=== PATIENT | female | born 1985 | race Caucasian/White ===

== ENCOUNTER 2016-03-19 13:32 | Emergency (ER) | payer OTHER ==
--- NOTE | 2016-03-19 13:56 | ER Document Report ---
ED Medical Screen (RME) - General Stated Complaint: PAIN,DRAINAGE AT SUTURE SITE/ARM Time seen by provider: 13:56 Mode of Arrival: Ambulatory Information source: Patient Notes: 30-year-old female had to dorsal right forearm laceration sutured on . It is throbbing with some drainage and she is wondering if she needs antibiotics. No fever. TRAVEL OUTSIDE OF THE [place] IN LAST 30 DAYS: No - Related Data Allergies/Adverse Reactions: ketorolac tromethamine [From Toradol] Adverse Reaction (Verified 01/15/16 22:52) HIVES, ITCHING Past Medical History - Past Medical History Cardiac Medical History: Denies: Hx Coronary Artery Disease, Hx Heart Attack, Hx Hypertension Pulmonary Medical History: Denies: Hx Asthma, Hx Bronchitis, Hx COPD, Hx Pneumonia Neurological Medical History: Reports: Hx Seizures - LAST ONE 12/26/15;"They can 't find out what's causing them". Denies: Hx Cerebrovascular Accident Musculoskeltal Medical History: Denies Hx Arthritis Psychiatric Medical History: Reports: Hx Anxiety - Takes Effexor Past Surgical History: Reports: Hx Appendectomy, Hx Cholecystectomy, Hx Gastric Bypass Surgery - 2002, Hx Hysterectomy, Hx Orthopedic Surgery - L meniscus repair - Immunizations Immunizations up to date: Yes Hx Diphtheria, Pertussis, Tetanus Vaccination: Yes
[2016-03-19] MEDS ORDERED: ONDANSETRON 4 MG TAB.RAPDIS PO ONE (14:00)
[2016-03-19] MEDS ORDERED: DIPH/PERTUSS(ACELL)/TETANUS VAC/PF 0.5 ML SYR (>=10YO) IM ONE (14:39)
--- NOTE | 2016-03-19 14:39 | ER Document Report ---
ED Medical Screen (RME) - General Chief Complaint: Wound Infection Stated Complaint: PAIN,DRAINAGE AT SUTURE SITE/ARM Mode of Arrival: Ambulatory Notes: Patient is a 30-year-old female presents emergency Department for wound check. Patient states that she was cutting vegetables on when she cut the back of her wrist. She had her wound closed at [facility] on . Currently she is here complaining of pain at the site with mild drainage. She's concerned for infection. Admits to tenderness and warmth at the site without cloudy drainage. Denies any fevers, chills. tetanus not utd TRAVEL OUTSIDE OF THE [place] IN LAST 30 DAYS: No - Related Data Allergies/Adverse Reactions: ketorolac tromethamine [From Toradol] Adverse Reaction (Verified 01/15/16 22:52) HIVES, ITCHING Past Medical History - General Information source: Patient - Past Medical History Cardiac Medical History: Denies: Hx Coronary Artery Disease, Hx Heart Attack, Hx Hypertension Pulmonary Medical History: Denies: Hx Asthma, Hx Bronchitis, Hx COPD, Hx Pneumonia Neurological Medical History: Reports: Hx Seizures - LAST ONE 12/26/15;"They can 't find out what's causing them". Denies: Hx Cerebrovascular Accident Renal/ Medical History: Denies: Hx Peritoneal Dialysis Musculoskeltal Medical History: Denies Hx Arthritis Psychiatric Medical History: Reports: Hx Anxiety - Takes Effexor Past Surgical History: Reports: Hx Appendectomy, Hx Cholecystectomy, Hx Gastric Bypass Surgery - 2002, Hx Hysterectomy, Hx Orthopedic Surgery - L meniscus repair - Immunizations Immunizations up to date: Yes Hx Diphtheria, Pertussis, Tetanus Vaccination: Yes Review of Systems - Review of Systems Constitutional: No symptoms reported EENT: No symptoms reported Cardiovascular: No symptoms reported Respiratory: No symptoms reported Gastrointestinal: No symptoms reported Genitourinary: No symptoms reported Female Genitourinary: No symptoms reported Musculoskeletal: No symptoms reported Skin: See HPI Hematologic/Lymphatic: No symptoms reported Neurological/Psychological: No symptoms reported Physical Exam - Vital signs Vitals: Temp Pulse Resp BP Pulse Ox 97.8 F 105 H 16 136/86 H 100 03/19/16 13:59 03/19/16 13:59 03/19/16 13:59 03/19/16 13:59 03/19/16 13:59 - General General appearance: Appears well In distress: None - Skin Skin Temperature: Warm Skin Moisture: Dry Skin Color: Normal, Erythema Skin Turgor: Elastic Skin irregularity: Laceration - 2 lacerations. closed with prolene Location of irregularity: Extremities Character of irregularity: Linear Irregularity with: Tenderness, Warmth. negative: Weeping Course - Re-evaluation Re-evalutation: 03/19/16 14:36 Mild erythema with moderate tenderness larger 2 lacerations. No evidence of wound dehiscence or cloudy drainage. Discharge patient home on by mouth antibiotics and she wasn't sent home with anything and laceration care can follow-up with her primary care provider as scheduled for suture removal. - Vital Signs Vital signs: Temp Pulse Resp BP Pulse Ox 97.8 F 105 H 16 136/86 H 100 03/19/16 13:59 03/19/16 13:59 03/19/16 13:59 03/19/16 13:59 03/19/16 13:59 Doctor's Discharge - Discharge Clinical Impression: Encounter for evaluation of wound Condition: Good Disposition: HOME, SELF-CARE Instructions: Laceration Care ([facility]), Prophylactic Antibiotic ([facility]), Soap Cleansing ([facility]) Prescriptions: Tramadol HCl 50 mg PO Q8HP PRN #6 tablet PRN Reason: Cephalexin Monohydrate [Keflex 500 mg Capsule] 500 mg PO BID #7 capsule Forms: Elevated Blood Pressure
[2016-03-19] MEDS ORDERED: TRAMADOL HCL 50 MG TABLET PO ONE (14:40)
[2016-03-19 15:10] VITALS: BP 129/96
== END 2016-03-19 15:10 | disposition home or self-care (01) ==
LOC: ER 13:32
DX: T81.4XXA Infection following a procedure, initial encounter (principal); Z98.890 Other specified postprocedural states
CPT/HCPCS: 99282; 90471; 90715; S0119

== ENCOUNTER 2016-04-06 11:22 | Emergency (ER) | payer OTHER ==
--- NOTE | 2016-04-06 11:53 | ER Document Report ---
ED Medical Screen (RME) - General Stated Complaint: FOOT PAIN Notes: 30 yo female c/o pain to left toes x 3 days. hurts to walk. pt reports hitting toes on wooden stool TRAVEL OUTSIDE OF THE [place] IN LAST 30 DAYS: No - Related Data Allergies/Adverse Reactions: ketorolac tromethamine [From Toradol] Adverse Reaction (Verified 01/15/16 22:52) HIVES, ITCHING Past Medical History - Past Medical History Cardiac Medical History: Denies: Hx Coronary Artery Disease, Hx Heart Attack, Hx Hypertension Pulmonary Medical History: Denies: Hx Asthma, Hx Bronchitis, Hx COPD, Hx Pneumonia Neurological Medical History: Reports: Hx Seizures - LAST ONE 12/26/15;"They can 't find out what's causing them". Denies: Hx Cerebrovascular Accident Renal/ Medical History: Denies: Hx Peritoneal Dialysis Musculoskeltal Medical History: Denies Hx Arthritis Psychiatric Medical History: Reports: Hx Anxiety - Takes Effexor Past Surgical History: Reports: Hx Appendectomy, Hx Cholecystectomy, Hx Gastric Bypass Surgery - 2002, Hx Hysterectomy, Hx Orthopedic Surgery - L meniscus repair - Immunizations Immunizations up to date: Yes Hx Diphtheria, Pertussis, Tetanus Vaccination: No Physical Exam - Vital signs Vitals: Temp Pulse Resp BP Pulse Ox 98.1 F 108 H 20 127/75 H 97 04/06/16 11:42 04/06/16 11:42 04/06/16 11:42 04/06/16 11:42 04/06/16 11:42 Course - Vital Signs Vital signs: Temp Pulse Resp BP Pulse Ox 98.1 F 108 H 20 127/75 H 97 04/06/16 11:42 04/06/16 11:42 04/06/16 11:42 04/06/16 11:42 04/06/16 11:42
[2016-04-06] MEDS ORDERED: OXYCODONE-ACETAMINOPHEN 5-325 MG TABLET PO ONE (13:29)
--- NOTE | 2016-04-06 13:40 | ER Document Report ---
HPI - HPI Patient complains to provider of: toe pain Pain Level: 5 Context: He shouldn't is a 30-year-old female presents emergency Department complaining of left pinky toe pain. Patient states that her told her to stop stool may not avoid which he accidentally hit twice with her pinky toe today and she admits to pain. Patient has taken Motrin without any improvement in her symptoms. Able to bear weight. Sensation in the tip of her toe. PCP is [facility] - CARDIOVASCULAR Cardiovascular: DENIES: Chest pain - REPRODUCTIVE Reproductive: DENIES: : - DERM Skin Color: Normal Past Medical History - Social History Smoking Status: Never Smoker Chew tobacco use (# tins/day): No Frequency of alcohol use: None Drug Abuse: None Family History: Reviewed & Not Pertinent Patient has suicidal ideation: No Patient has homicidal ideation: No - Past Medical History Cardiac Medical History: Denies: Hx Coronary Artery Disease, Hx Heart Attack, Hx Hypertension Pulmonary Medical History: Denies: Hx Asthma, Hx Bronchitis, Hx COPD, Hx Pneumonia Neurological Medical History: Reports: Hx Seizures - LAST ONE 12/26/15;"They can 't find out what's causing them". Denies: Hx Cerebrovascular Accident Renal/ Medical History: Denies: Hx Peritoneal Dialysis Musculoskeltal Medical History: Denies Hx Arthritis Psychiatric Medical History: Reports: Hx Anxiety - Takes Effexor, Hx Depression - & anxiety Past Surgical History: Reports: Hx Appendectomy, Hx Cholecystectomy, Hx Gastric Bypass Surgery - 2002, Hx Hysterectomy, Hx Orthopedic Surgery - L meniscus repair - Immunizations Immunizations up to date: Yes Hx Diphtheria, Pertussis, Tetanus Vaccination: No Vertical Provider Document - CONSTITUTIONAL Agree With Documented VS: Yes Exam Limitations: No Limitations General Appearance: WD/WN, No Apparent Distress, Obese - INFECTION CONTROL TRAVEL OUTSIDE OF THE [place] IN LAST 30 DAYS: No - HEENT HEENT: Atraumatic, Normocephalic - RESPIRATORY O2 Sat by Pulse Oximetry: 97 - CARDIOVASCULAR Pulses: Normal: Dorsalis pedis Notes: Capillary refill less than 2 seconds in all lower extremity digits - MUSCULOSKELETAL/EXTREMETIES Musculoskeletal/Extremeties: MAEW, FROM, Tender, Edema, Eccymosis - NEURO Level of Consciousness: Awake, Alert, Appropriate Motor/Sensory: No Motor Deficit, No Sensory Deficit - DERM Integumentary: Warm, Dry, No Rash Course - Re-evaluation Re-evalutation: 04/06/16 13:36 Patient is a 30-year-old female presents emergency Department complaining of left pinky toe pain after she hit it on some wooden x-ray does reveal a comminuted fracture of the fifth proximal phalanx. Will discharge patient home with instruction to use supportive shoes and crutches as tolerated ice and elevation. Follow-up with her primary care provider as needed - Vital Signs Vital signs: Temp Pulse Resp BP Pulse Ox 98.1 F 108 H 20 127/75 H 97 04/06/16 11:42 04/06/16 11:42 04/06/16 11:42 04/06/16 11:42 04/06/16 11:42 - Diagnostic Test Radiology reviewed: Image reviewed, Reports reviewed Discharge - Discharge Clinical Impression: Toe fracture Qualifiers: Encounter type: initial encounter Toe: lesser toe Fracture type: closed Phalanx : proximal Fracture alignment: nondisplaced Laterality: left Qualified Code(s): S92.515A - Nondisplaced fracture of proximal phalanx of left lesser toe(s), initial encounter for closed fracture Condition: Good Disposition: HOME, SELF-CARE Additional Instructions: Fractured Toe You have fractured your toe. Although this fracture doesn't need a cast or splint, emergency evaluation was needed to assess the straightness of the bones and joints. Reduction ("setting") is necessary for toe fractures which are crooked or twisted. A toe fracture will heal in about three weeks. Usually, the fractured toe is taped to the next toe. The second toe acts as a moving splint to protect the broken one. Ice and elevation help during the first 48 hours. You may need crutches at first if walking is painful. When you begin walking, be careful NOT to do things that hurt. If weight bearing is not comfortable within a few days, you may require a special shoe, walking boot, or cast. Call the doctor or return at once if severe swelling, severe pain, or numbness develop in the toe, or if you suspect you may have re-injured it. Prescriptions: Oxycodone HCl/Acetaminophen [Percocet 5-325 mg Tablet] 1 - 2 tab PO Q6HP PRN # 20 tablet PRN Reason:
[2016-04-06 13:50] VITALS: BP 114/99
== END 2016-04-06 13:48 | disposition home or self-care (01) ==
LOC: ER 11:22
DX: S92.515A Nondisplaced fracture of proximal phalanx of left lesser toe(s), initial encounter for closed fracture (principal); W22.03XA Walked into furniture, initial encounter; Z90.49 Acquired absence of other specified parts of digestive tract; Z98.84 Bariatric surgery status; Z90.710 Acquired absence of both cervix and uterus
CPT/HCPCS: 99283

== ENCOUNTER 2016-04-08 13:32 | Emergency (ER) | payer OTHER ==
--- NOTE | 2016-04-08 13:40 | ER Document Report ---
ED Medical Screen (RME) - General Stated Complaint: FOOT PAIN Time seen by provider: 13:38 Mode of Arrival: Ambulatory Notes: Patient states that she was seen here several days ago, diagnosed with hairline fracture in left toe. Patient states she feels like the pain is getting worse. Toes have started turning blue. I have greeted and performed a rapid initial assessment of this patient. A comprehensive ED assessment and evaluation of the patient, analysis of test results and completion of the medical decision making process will be conducted by additional ED providers. TRAVEL OUTSIDE OF THE [place] IN LAST 30 DAYS: No - Related Data Allergies/Adverse Reactions: ketorolac tromethamine [From Toradol] Adverse Reaction (Verified 01/15/16 22:52) HIVES, ITCHING Past Medical History - Past Medical History Cardiac Medical History: Denies: Hx Coronary Artery Disease, Hx Heart Attack, Hx Hypertension Pulmonary Medical History: Denies: Hx Asthma, Hx Bronchitis, Hx COPD, Hx Pneumonia Neurological Medical History: Reports: Hx Seizures - LAST ONE 12/26/15;"They can 't find out what's causing them". Denies: Hx Cerebrovascular Accident Renal/ Medical History: Denies: Hx Peritoneal Dialysis Musculoskeltal Medical History: Denies Hx Arthritis Psychiatric Medical History: Reports: Hx Anxiety - Takes Effexor, Hx Depression - & anxiety Past Surgical History: Reports: Hx Appendectomy, Hx Cholecystectomy, Hx Gastric Bypass Surgery - 2002, Hx Hysterectomy, Hx Orthopedic Surgery - L meniscus repair - Immunizations Immunizations up to date: Yes Hx Diphtheria, Pertussis, Tetanus Vaccination: No Physical Exam - Vital signs Vitals: Temp Pulse Resp BP Pulse Ox 97.7 F 107 H 20 148/105 H 99 04/08/16 13:36 04/08/16 13:36 04/08/16 13:36 04/08/16 13:36 04/08/16 13:36 - Extremities Notes: Patient has left fourth and fifth toes raul taped, walking with limp. Slight bruising noted. Course - Vital Signs Vital signs: Temp Pulse Resp BP Pulse Ox 97.7 F 107 H 20 148/105 H 99 04/08/16 13:36 04/08/16 13:36 04/08/16 13:36 04/08/16 13:36 04/08/16 13:36
[2016-04-08] MEDS ORDERED: ONDANSETRON 4 MG TAB.RAPDIS PO ONE (14:28)
--- NOTE | 2016-04-08 14:33 | ER Document Report ---
ED Extremity Problem, Lower - General Chief Complaint: Foot Pain Stated Complaint: FOOT PAIN Mode of Arrival: Ambulatory Information source: Patient Notes: 30-year-old female presents to the emergency department complaining of left pain. Patient reports she struck the lateral aspect of her left foot and fifth toe 2 days ago on a piece of furniture at home and was subsequently evaluated) department. States was told she had a fractured left fifth toe. Reports pain is persistent. Denies increased swelling, paresthesias, or color changes aside from initial bruising. TRAVEL OUTSIDE OF THE [place] IN LAST 30 DAYS: No - HPI Patient complains to provider of: Pain Location: 5th Toe Onset/Duration: Persistent Quality of pain: Achy Severity: Moderate Pain Level: 3 Recent injury: Yes Associated symptoms: Painful ambulation Exacerbated by: Movement, Walking Relieved by: Elevation, Ice, Rest - Related Data Allergies/Adverse Reactions: ketorolac tromethamine [From Toradol] Adverse Reaction (Verified 01/15/16 22:52) HIVES, ITCHING Past Medical History - General Information source: Patient - Social History Smoking Status: Never Smoker Chew tobacco use (# tins/day): No Frequency of alcohol use: None Drug Abuse: None Lives with: Family Family History: Reviewed & Not Pertinent Patient has suicidal ideation: No Patient has homicidal ideation: No - Past Medical History Cardiac Medical History: Denies: Hx Coronary Artery Disease, Hx Heart Attack, Hx Hypertension Pulmonary Medical History: Denies: Hx Asthma, Hx Bronchitis, Hx COPD, Hx Pneumonia Neurological Medical History: Reports: Hx Seizures - LAST ONE 12/26/15;"They can 't find out what's causing them". Denies: Hx Cerebrovascular Accident Renal/ Medical History: Denies: Hx Peritoneal Dialysis Musculoskeltal Medical History: Denies Hx Arthritis Psychiatric Medical History: Reports: Hx Anxiety - Takes Effexor, Hx Depression - & anxiety Past Surgical History: Reports: Hx Appendectomy, Hx Cholecystectomy, Hx Gastric Bypass Surgery - 2002, Hx Hysterectomy, Hx Orthopedic Surgery - L meniscus repair - Immunizations Hx Diphtheria, Pertussis, Tetanus Vaccination: Yes Review of Systems - Review of Systems Constitutional: No symptoms reported EENT: No symptoms reported Cardiovascular: No symptoms reported Respiratory: No symptoms reported Gastrointestinal: No symptoms reported Genitourinary: No symptoms reported Female Genitourinary: No symptoms reported Musculoskeletal: See HPI Skin: No symptoms reported Hematologic/Lymphatic: No symptoms reported Neurological/Psychological: No symptoms reported -: Yes All other systems reviewed and negative Physical Exam - Vital signs Vitals: Temp Pulse Resp BP Pulse Ox 97.7 F 107 H 20 148/105 H 99 04/08/16 13:36 04/08/16 13:36 04/08/16 13:36 04/08/16 13:36 04/08/16 13:36 Interpretation: Normal - General General appearance: Appears well, Alert In distress: None - HEENT Head: Normocephalic, Atraumatic Eyes: Normal Pupils: PERRL - Respiratory Respiratory status: No respiratory distress Chest status: Nontender Breath sounds: Normal Chest palpation: Normal - Cardiovascular Rhythm: Regular Heart sounds: Normal auscultation Murmur: No Pulses: Normal: Radial, Posterior tibial, Dorsalis pedis Normal capillary refill: Yes - Abdominal Inspection: Normal Distension: No distension Bowel sounds: Normal Tenderness: Nontender Organomegaly: No organomegaly - Back Back: Normal, Nontender - Extremities General upper extremity: Normal inspection, Nontender, Normal color, Normal ROM , Normal strength, Normal temperature. No: Tender, Edema General lower extremity: Normal inspection, Nontender, Normal color, Normal ROM , Normal strength, Normal temperature, Normal weight bearing. No: Tender, Edema Knee: Normal, Nontender Calf: Normal, Nontender Ankle: Normal, Nontender Foot: Tender - Mild tenderness with palpation, and mild localized bruising and swelling to lateral aspect of distal left foot and fifth toe. Full but painful range of motion. Motor and neurovascular function intact., Ecchymosis, Edema. No: Deformity, Instability - Neurological Neuro grossly intact: Yes Cognition: Normal Orientation: AAOx4 [place] Coma Scale Eye Opening: Spontaneous [place] Coma Scale Verbal: Oriented [place] Coma Scale Motor: Obeys Commands [place] Coma Scale Total: 15 Speech: Normal Motor strength normal: LUE, RUE, LLE, RLE Sensory: Normal - Psychological Associated symptoms: Normal affect, Normal mood - Skin Skin Temperature: Warm Skin Moisture: Dry Skin Color: Normal Course - Re-evaluation Re-evalutation: 04/08/16 14:36 Patient hemodynamically stable, in no distress. Reviewed patient's records from 2 days ago during initial ED visit after injury which showed mildly comminuted proximal phalanx left fifth toe fracture. Patient's physical exam today is unremarkable. Will place postop shoe and patient declined crutches at this time. Patient appears stable for discharge and agrees with home care, follow-up with PCP and orthopedics, and ED return precautions. - Vital Signs Vital signs: Temp Pulse Resp BP Pulse Ox 98.3 F 105 H 16 140/86 H 96 04/08/16 14:45 04/08/16 14:45 04/08/16 14:45 04/08/16 14:45 04/08/16 14:45 - Diagnostic Test Radiology reviewed: Image reviewed, Reports reviewed Procedures - Immobilization Left Foot Time completed: 14:45 Pre-Proc Neuro Vasc Exam: Normal Immobilizer type: Post-op shoe Performed by: RN, PCT Post-Proc Neuro Vasc Exam: Normal Alignment checked and good: Yes Discharge - Discharge Clinical Impression: Toe fracture Qualifiers: Encounter type: subsequent encounter Toe: lesser toe Fracture type: closed Phalanx: proximal Fracture alignment: nondisplaced Laterality: left Fracture healing: with routine healing Qualified Code(s): S92.515D - Nondisplaced fracture of proximal phalanx of left lesser toe(s), subsequent encounter for fracture with routine healing Condition: Stable Disposition: HOME, SELF-CARE Instructions: Fractured Toe ([facility]), Milo Taping (toes) ([facility]), Post-Op Shoe ([facility] ), Ice & Elevation ([facility]), Anti-Inflammatory Medication ([facility]) Additional Instructions: Follow-up with your primary care provider next week. Return to the emergency department for any worsening symptoms or concerns. Prescriptions: Naproxen [Naprosyn 375 Mg Tablet] 375 mg PO BIDP PRN #10 tablet PRN Reason: Forms: Return to Work Referrals: JAELYN ENRIQUEZ MD [ACTIVE STAFF] - Follow up in 3-5 days
[2016-04-08 14:50] VITALS: BP 140/86
== END 2016-04-08 14:48 | disposition home or self-care (01) ==
LOC: ER 13:32
DX: S92.515D Nondisplaced fracture of proximal phalanx of left lesser toe(s), subsequent encounter for fracture with routine healing (principal); M79.672 Pain in left foot; X58.XXXD Exposure to other specified factors, subsequent encounter
CPT/HCPCS: 99283; S0119

== ENCOUNTER 2016-04-20 20:27 | Emergency (ER) | payer OTHER ==
--- NOTE | 2016-04-20 20:44 | ER Document Report ---
ED Medical Screen (RME) - General Chief Complaint: Allergic Reaction Stated Complaint: CHEST PAIN Time seen by provider: 20:41 Mode of Arrival: Ambulatory Information source: Patient Notes: 31-year-old female presents to ED for chest pain anxiety possible allergic reaction to her lunesta. She stated her face felt numb. Patient was crying. Vital signs stable lungs are clear no difficulty with breathing. States she took her first dose today. She states she usually goes to bed around 7 so that is when she took her medicine. I have greeted and performed a rapid initial assessment of this patient. A comprehensive ED assessment and evaluation of the patient, analysis of test results and completion of medical decision making process will be conducted by an additional ED providers. TRAVEL OUTSIDE OF THE [place] IN LAST 30 DAYS: No - Related Data Allergies/Adverse Reactions: ketorolac tromethamine [From Toradol] Adverse Reaction (Verified 01/15/16 22:52) HIVES, ITCHING Past Medical History - Past Medical History Cardiac Medical History: Denies: Hx Coronary Artery Disease, Hx Heart Attack, Hx Hypertension Pulmonary Medical History: Denies: Hx Asthma, Hx Bronchitis, Hx COPD, Hx Pneumonia Neurological Medical History: Reports: Hx Seizures - LAST ONE 12/26/15;"They can 't find out what's causing them". Denies: Hx Cerebrovascular Accident Renal/ Medical History: Denies: Hx Peritoneal Dialysis Musculoskeltal Medical History: Denies Hx Arthritis Psychiatric Medical History: Reports: Hx Anxiety - Takes Effexor, Hx Depression - & anxiety Past Surgical History: Reports: Hx Appendectomy, Hx Cholecystectomy, Hx Gastric Bypass Surgery - 2002, Hx Hysterectomy, Hx Orthopedic Surgery - L meniscus repair - Immunizations Immunizations up to date: Yes Hx Diphtheria, Pertussis, Tetanus Vaccination: Yes
[2016-04-20] MEDS ORDERED: ONDANSETRON 4 MG TAB.RAPDIS PO ONE (21:12)
[2016-04-20 21:19] LABS: ABSOLUTE BASOPHILS # (AUTO) 0.1 10^3/uL (0.0-0.2); ABSOLUTE EOSINOPHILS # (AUTO) 0.1 10^3/uL (0.0-0.6); ABSOLUTE LYMPHOCYTES (AUTO) 2.7 10^3/uL (0.5-4.7); ABSOLUTE MONOCYTES (AUTO) 0.5 10^3/uL (0.1-1.4); ABSOLUTE NEUT (AUTO) 5.5 10^3/uL (1.7-8.2); BASOPHILS % (AUTO) 0.9 % (0-2); EOSINOPHILS % (AUTO) 1.1 % (0-6); HEMATOCRIT 36.5 % (36.0-47.0); HEMOGLOBIN 11.6 g/dL (12.0-15.5); HGB HCT DIFFERENCE -1.7; LYMPHOCYTES % (AUTO) 30.1 % (13-45); MEAN CORPUSCULAR HEMOGLOBIN 25.1 pg (27.0-33.4); MEAN CORPUSCULAR HGB CONC 31.9 g/dL (32.0-36.0); MEAN CORPUSCULAR VOLUME 79 fl (80-97); MONOCYTES % (AUTO) 5.7 % (3-13); RED BLOOD COUNT 4.63 10^6/uL (3.72-5.28); RED CELL DISTRIBUTION WIDTH 15.9 % (11.5-14.0); SEGMENTED NEUTROPHILS % (AUTO) 62.2 % (42-78); WHITE BLOOD COUNT 8.8 10^3/uL (4.0-10.5)
[2016-04-20 21:41] LABS: ALANINE AMINOTRANSFERASE 22 U/L (9-52); ALBUMIN 4.2 g/dL (3.5-5.0); ALKALINE PHOSPHATASE 106 U/L (38-126); ANION GAP 13 (5-19); ASPARTATE AMINO TRANSFERASE 18 U/L (14-36); BILIRUBIN,TOTAL 0.3 mg/dL (0.2-1.3); BLOOD UREA NITROGEN 16 mg/dL (7-20); CALCIUM 9.2 mg/dL (8.4-10.2); CARBON DIOXIDE 23 mmol/L (22-30); CHLORIDE 104 mmol/L (98-107); CREATINE KINASE 72 U/L (30-135); CREATININE RESULT 1.15 mg/dL (0.52-1.25); GLUCOSE 132 mg/dL (75-110); POTASSIUM 4.2 mmol/L (3.6-5.0); SODIUM 140.2 mmol/L (137-145); TOTAL PROTEIN 7.1 g/dL (6.3-8.2)
== END 2016-04-20 21:18 | disposition left against medical advice (07) ==
LOC: ER 20:27
DX: R07.9 Chest pain, unspecified (principal); F41.9 Anxiety disorder, unspecified; R20.0 Anesthesia of skin; Z53.20 Procedure and treatment not carried out because of patient's decision for unspecified reasons
CPT/HCPCS: 36415; 80053; 82550; 82553; 84703; 85025; 99281

== ENCOUNTER 2016-05-01 09:01 | Emergency (ER) | payer OTHER ==
[2016-05-01 09:12] VITALS: BP 109/48
--- NOTE | 2016-05-01 09:48 | ER Document Report ---
ED Neck/Back Problem - General Time seen by provider: 10:12 Mode of Arrival: Ambulatory Information source: Patient TRAVEL OUTSIDE OF THE [place] IN LAST 30 DAYS: No - HPI Patient complains to provider of: Upper back Onset: Other - see HPI note Where: Outdoors Associated symptoms: None - General Chief Complaint: Back Pain Stated Complaint: BACK PAIN Notes: Patient is a 30 year old female presenting to the emergency department for pain in her right shoulder and back. Patient states she had pain onset the day after she was kayaking. Patient states that she has been using muscle relaxers and ibuprofen for her pain. Patient has a history of seizures. Patient denies being . [place] Patient is allergic to ketorolac tromethamine. Patient also has a history of back problems. (OBI GALAVIZ) - Related Data Allergies/Adverse Reactions: ketorolac tromethamine [From Toradol] Adverse Reaction (Verified 05/01/16 09:12) HIVES, ITCHING Past Medical History - General Information source: Patient - Social History Smoking Status: Never Smoker Cigarette use (# per day): No Chew tobacco use (# tins/day): No Frequency of alcohol use: None Drug Abuse: None Family History: None Patient has suicidal ideation: No Patient has homicidal ideation: No Neurological Medical History: Reports: Hx Seizures - LAST ONE 12/26/15;"They can 't find out what's causing them" Musculoskeltal Medical History: Denies Hx Arthritis Psychiatric Medical History: Reports: Hx Anxiety - Takes Effexor, Hx Depression - & anxiety Past Surgical History: Reports: Hx Appendectomy, Hx Cholecystectomy, Hx Gastric Bypass Surgery - 2002, Hx Hysterectomy, Hx Orthopedic Surgery - L meniscus repair - Immunizations Immunizations up to date: Yes Hx Diphtheria, Pertussis, Tetanus Vaccination: Yes Review of Systems - Review of Systems Constitutional: No symptoms reported EENT: No symptoms reported Cardiovascular: No symptoms reported Respiratory: No symptoms reported Gastrointestinal: No symptoms reported Genitourinary: No symptoms reported Female Genitourinary: No symptoms reported Musculoskeletal: See HPI, Back pain Skin: No symptoms reported Hematologic/Lymphatic: No symptoms reported Neurological/Psychological: No symptoms reported -: Yes All other systems reviewed and negative Physical Exam - Vital signs Interpretation: Normal - General General appearance: Appears well, Alert In distress: Mild - HEENT Head: Normocephalic, Atraumatic Eyes: Normal Pupils: PERRL Mucous membranes: Moist - Respiratory Respiratory status: No respiratory distress Chest status: Nontender Breath sounds: Normal Chest palpation: Normal - Cardiovascular Rhythm: Regular Heart sounds: Normal auscultation Murmur: No - Abdominal Inspection: Normal Distension: No distension Bowel sounds: Normal Tenderness: Nontender Organomegaly: No organomegaly - Back Back: Normal, Tender - no midline tenderness, parathoracic tenderness with palpatation - Extremities General upper extremity: Normal inspection, Normal ROM, Normal strength General lower extremity: Normal inspection, Normal ROM, Normal strength - Neurological Neuro grossly intact: Yes Cognition: Normal Orientation: AAOx4 Aranza Coma Scale Eye Opening: Spontaneous Aranza Coma Scale Verbal: Oriented Aranza Coma Scale Motor: Obeys Commands Aranza Coma Scale Total: 15 Speech: Normal - Psychological Associated symptoms: Normal affect, Normal mood - Skin Skin Temperature: Warm Skin Moisture: Dry Course - Re-evaluation Re-evalutation: 05/01/16 22:25 I personally performed the services described in the documentation, reviewed and edited the documentation which was dictated to my scribe in my presence, and it accurately records my words and actions. Patient complains of pain in the posterior aspect of her right shoulder muscle skeletal area after she kayaked yesterday she is [id number] no associated trauma she's chronic pain patient on multiple medications and taking a muscle relaxer. On examination is definite musculoskeletal tenderness no emergent need for a x-ray. Normal neurovascular and no deficits. Patient is on all the medications that are appropriate narcotics are not appropriate in this situation she'll follow up with her doctor who prescribes her medication for her chronic problems in 3-4 days and discussed reasons for ED return sooner ( KEON SMITH) - Vital Signs Vital signs: Temp Pulse Resp BP Pulse Ox 98.4 F 110 H 20 109/48 L 99 05/01/16 09:11 05/01/16 09:11 05/01/16 09:11 05/01/16 09:11 05/01/16 09:11 Discharge - Discharge Clinical Impression: Muscle strain Condition: Stable Disposition: HOME, SELF-CARE Instructions: Muscle Strain ([facility]) Additional Instructions: Muscle Strain You have strained a muscle -- torn the fibers within the muscle. This often occurs with strenuous exertion, or during an injury that suddenly stretches the muscle. The seriousness of a strain varies. Some strains heal within days, others cause problems for months. X-rays cannot show a muscle strain. X-rays are taken only if symptoms suggest that a fracture could be present. The usual treatment of a muscle strain is rest and ice packs. Sometimes, a sling, splint, or crutches may be necessary to rest the muscle. The muscle can be used again once pain subsides. Severe strains require a special exercise and stretching program to prevent permanent stiffness and disability. Your doctor will advise you if this will be necessary. Call the doctor immediately if pain or swelling becomes severe, or if numbness or discoloration develop. Follow up with her family provider this week for increasing worsening or new symptoms return to the emergency department Angelicaibhowie Documentation - Scribe Written by Nicolas:: Obi Galaviz 05/01/16 15:10 acting as scribe for :: Segundo
== END 2016-05-01 10:22 | disposition home or self-care (01) ==
LOC: ER 09:01
DX: T14.8 Other injury of unspecified body region (principal); X58.XXXA Exposure to other specified factors, initial encounter; M25.511 Pain in right shoulder; M54.89 Other dorsalgia; G89.29 Other chronic pain; Z79.899 Other long term (current) drug therapy; Z98.84 Bariatric surgery status
CPT/HCPCS: 99283

== ENCOUNTER 2016-08-25 18:53 | Emergency (ER) | payer OTHER ==
[2016-08-25] MEDS ORDERED: METHYLPREDNISOLONE INJ 125 MG/2 ML SDV IM ONE (19:09)
[2016-08-25] MEDS ORDERED: CYCLOBENZAPRINE HCL 10 MG TABLET PO ONE (19:18)
[2016-08-25] MEDS ORDERED: OXYCODONE-ACETAMINOPHEN 5-325 MG TABLET PO ONE (19:59)
--- NOTE | 2016-08-25 20:00 | ER Document Report ---
ED Neck/Back Problem - General Chief Complaint: Back Pain Stated Complaint: BACK PAIN Time Seen by Provider: 08/25/16 18:59 Notes: Patient is a 31-year-old female presents emergency department complaining of right low back pain. Patient states that she has a history of chronic back pain. Patient states she woke up 2 days ago with worsening low back pain. She denies any trauma. She denies any urinary/fecal incontinence, saddle anesthesia. Gait stable without any difficulties. TRAVEL OUTSIDE OF THE [place] IN LAST 30 DAYS: No - Related Data Allergies/Adverse Reactions: ketorolac tromethamine [From Toradol] Adverse Reaction (Verified 08/25/16 18:55) HIVES, ITCHING Past Medical History - Social History Smoking Status: Never Smoker Family History: None Patient has suicidal ideation: No Patient has homicidal ideation: No - Past Medical History Cardiac Medical History: Denies: Hx Coronary Artery Disease, Hx Heart Attack, Hx Hypertension Pulmonary Medical History: Denies: Hx Asthma, Hx Bronchitis, Hx COPD, Hx Pneumonia Neurological Medical History: Reports: Hx Seizures - LAST ONE 12/26/15;"They can 't find out what's causing them". Denies: Hx Cerebrovascular Accident Renal/ Medical History: Denies: Hx Peritoneal Dialysis Musculoskeltal Medical History: Denies Hx Arthritis Psychiatric Medical History: Reports: Hx Anxiety - Takes Effexor, Hx Depression - & anxiety Past Surgical History: Reports: Hx Appendectomy, Hx Cholecystectomy, Hx Gastric Bypass Surgery - 2002, Hx Hysterectomy, Hx Orthopedic Surgery - L meniscus repair - Immunizations Immunizations up to date: Yes Hx Diphtheria, Pertussis, Tetanus Vaccination: Yes Review of Systems - Review of Systems Constitutional: No symptoms reported Musculoskeletal: See HPI -: Yes All other systems reviewed and negative Physical Exam - Vital signs Vitals: Temp Pulse Resp BP Pulse Ox 97.7 F 115 H 18 127/71 H 98 08/25/16 18:56 08/25/16 18:56 08/25/16 18:56 08/25/16 18:56 08/25/16 18:56 - General General appearance: Appears well, Alert In distress: None - Cardiovascular Pulses: Normal: Radial, Dorsalis pedis Normal capillary refill: Yes - Back Back: Tender - diffusely tender, patient jumping away when her skin is palpated.. No: Deformity/step-off, CVA tenderness, Vertebra tenderness, Scars, Scoliosis, Wounds - Extremities General upper extremity: Normal inspection, Nontender, Normal color, Normal ROM , Normal strength, Normal temperature General lower extremity: Normal inspection, Nontender, Normal color, Normal ROM , Normal strength, Normal temperature, Normal weight bearing - Neurological Neuro grossly intact: Yes Cognition: Normal Orientation: AAOx4 Aranza Coma Scale Eye Opening: Spontaneous Duarte Coma Scale Verbal: Oriented Duarte Coma Scale Motor: Obeys Commands Aranza Coma Scale Total: 15 Speech: Normal Cranial nerves: Normal Cerebellar coordination: Normal Motor strength normal: LUE, RUE, LLE, RLE 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 The patient is neurologically intact. Given the extremely low risk of these diagnoses further testing and evaluation for these possibilities does not appear to be indicated at this time. The patient has been instructed to return if the symptoms worsen or change in any way. - Vital Signs Vital signs: Temp Pulse Resp BP Pulse Ox 98.5 F 104 H 20 110/56 L 96 08/25/16 20:20 08/25/16 20:20 08/25/16 20:20 08/25/16 20:20 08/25/16 20:20 Discharge - Discharge Clinical Impression: Back pain Qualifiers: Back pain location: low back pain Chronicity: chronic Back pain laterality: right Sciatica presence: with sciatica Sciatica laterality: sciatica of right side Qualified Code(s): M54.41 - Lumbago with sciatica, right side Condition: Good Disposition: HOME, SELF-CARE Additional Instructions: LOW BACK PAIN: Three out of every four people will have an episode of disabling back pain during their lifetime. Most commonly the pain is due to straining of the muscles and ligaments in the low back. Usual treatment includes: (1) Rest on a firm surface. Avoid lying on your stomach. (2) Ice pack the painful area. After a few days, gentle heat may be used intermittently to relax the area, or ice packs can be continued. (3) Medication may be needed -- muscle relaxers and antiinflammatory medicines are commonly used. (4) As the back improves, exercises are prescribed to strengthen the back and abdominal muscles. Your doctor will advise you on the proper care for your back at each stage in your recovery. You may be better in a few days -- or healing may take several weeks. If new symptoms of a "herniated disc" (radiation of pain, numbness, or tingling down the back of the leg or weakness in the leg) occur, you should be re-examined. Further testing may be necessary. MUSCLE RELAXERS: Muscle relaxing medications are usually prescribed for acute muscle spasm or injury to the neck and back. They are often combined with antiinflammatory pain medication for increased relief. You may stop the muscle relaxer when the pain and stiffness have improved. Start the medication again if spasms recur. Muscle relaxers may cause drowsiness, especially with the first dose. Do not operate machinery or drive while under the effects of the medication. Most muscle relaxers last up to 24 hours. Do not combine the medication with alcohol. ICE PACKS: Apply ice packs frequently against the painful area. Many different schedules are recommended, such as "20 minutes on, 20 minutes off" or "one hour ice, two hours rest." If you need to work, you may need to go longer between ice treatments. You should plan to have the area ice packed AT LEAST one fourth of the time. The ice should be applied over the wrap, tape, or splint, or over a layer of cloth -- not directly against the skin. Some ice bags have a built-in cloth and can be put directly on the skin. WARM PACKS: After approximately two days, apply gentle heat (such as a heating pad or hot water bottle) for about 20 to 30 minutes about every two hours -- at least four times daily. Warmth and elevation will help you make a more rapid recovery , and will ease the pain considerably. Do not use HOT heat, and never apply heat for longer than 30 minutes. The continuous heat can invisibly damage skin and muscles -- even when no burn is seen on the surface. Damaged muscles can make you MORE sore. FOLLOW-UP CARE: If you have been referred to a physician for follow-up care, call the physician s office for an appointment as you were instructed or within the next two days. If you experience worsening or a significant change in your symptoms, notify the physician immediately or return to the Emergency Department at any time for re-evaluation. Prescriptions: Cyclobenzaprine HCl [Flexeril 10 mg Tablet] 10 mg PO TIDP PRN #15 tab PRN Reason: Methylprednisolone [Medrol Dosepack (4 mg/Tab) 21 Tab/Dosepak] 4 mg PO ASDIR PRN #21 tab.ds.pk PRN Reason:
[2016-08-25 20:21] VITALS: BP 110/56
== END 2016-08-25 20:24 | disposition home or self-care (01) ==
LOC: ER 18:53
DX: G89.29 Other chronic pain (principal); M54.41 Lumbago with sciatica, right side; Z98.84 Bariatric surgery status
CPT/HCPCS: 99283; 96374; J2930

== ENCOUNTER 2016-12-03 11:35 | Emergency (ER) | payer OTHER ==
[2016-12-03] MEDS ORDERED: IBUPROFEN 800 MG TABLET PO ONE (11:57)
--- NOTE | 2016-12-03 12:04 | ER Document Report ---
ED Extremity Problem, Lower - General Chief Complaint: Knee Pain Stated Complaint: KNEE PAIN Time Seen by Provider: 12/03/16 11:50 Mode of Arrival: Ambulatory Information source: Patient Notes: 31-year-old female presents to ED for complaint of left knee pain and swelling. She states this started after her stretching class yesterday. She states her pain is 4/5. She was able to walk into the emergency room with a steady even gait. She denies any falls or any other injuries besides exercising yesterday. She states she had a meniscus repair last year on this knee. When I told her that we would be given her ibuprofen ice and an x-ray, she stated the ibuprofen and ice were not going to work. TRAVEL OUTSIDE OF THE [place] IN LAST 30 DAYS: No - HPI Patient complains to provider of: Pain, Swelling Location: Knee - Left Occurred: Yesterday Where: Public place Onset/Duration: Persistent Quality of pain: Achy - And radiating Severity: Moderate Pain Level: 4 Context: Other - Exercise class yesterday Recent injury: Possibly Associated symptoms: Painful ambulation Exacerbated by: Movement, Walking Relieved by: Nothing - Related Data Allergies/Adverse Reactions: ketorolac tromethamine [From Toradol] Adverse Reaction (Verified 12/03/16 11:44) HIVES, ITCHING Past Medical History - General Information source: Patient - Social History Smoking Status: Never Smoker Cigarette use (# per day): No Chew tobacco use (# tins/day): No Smoking Education Provided: No Frequency of alcohol use: None Drug Abuse: None Occupation: student Lives with: Family Family History: Arthritis, CAD, CVA, DM, Hyperlipidemia, Hypertension, Malignancy. denies: COPD, Thyroid Disfunction Patient has suicidal ideation: No Patient has homicidal ideation: No - Past Medical History Cardiac Medical History: Reports: None Pulmonary Medical History: Reports: None EENT Medical History: Reports: None Neurological Medical History: Reports: Hx Seizures - LAST ONE 12/26/15;"They can 't find out what's causing them" Endocrine Medical History: Reports: None Renal/ Medical History: Reports: Hx Ovarian Cysts Malignancy Medical History: Reports: None Musculoskeltal Medical History: Reports Hx Arthritis, Reports Hx Musculoskeletal Deformity, Reports Hx Musculoskeletal Trauma Psychiatric Medical History: Reports: Hx Anxiety - Takes Effexor, Hx Attention Deficit Hyperactivity Disorder, Hx Depression Traumatic Medical History: Reports: None Infectious Medical History: Reports: None Past Surgical History: Reports: Hx Adenoidectomy, Hx Appendectomy, Hx Cholecystectomy, Hx Gastric Bypass Surgery - 2003, Hx Hysterectomy, Hx Orthopedic Surgery - L meniscus repair, Hx Tonsillectomy - Immunizations Immunizations up to date: Yes Hx Diphtheria, Pertussis, Tetanus Vaccination: Yes - 2014 History of Influenza Vaccine for 11/2016 - 04/2017 Season: No History of Pneumococcal Vaccine: No Review of Systems - Review of Systems Constitutional: No symptoms reported EENT: No symptoms reported Cardiovascular: No symptoms reported Respiratory: No symptoms reported Gastrointestinal: No symptoms reported Genitourinary: No symptoms reported Female Genitourinary: No symptoms reported Musculoskeletal: Joint pain - Left knee, Joint swelling Skin: No symptoms reported Hematologic/Lymphatic: No symptoms reported Neurological/Psychological: No symptoms reported -: Yes All other systems reviewed and negative Physical Exam - Vital signs Vitals: Temp Pulse Resp BP Pulse Ox 98.2 F 94 16 114/56 L 98 12/03/16 11:40 12/03/16 11:40 12/03/16 11:40 12/03/16 11:40 12/03/16 11:40 Interpretation: Normal - General General appearance: Appears well, Alert - HEENT Head: Normocephalic, Atraumatic Eyes: Normal Pupils: PERRL - Respiratory Respiratory status: No respiratory distress Chest status: Nontender Breath sounds: Normal Chest palpation: Normal - Cardiovascular Rhythm: Regular Heart sounds: Normal auscultation Murmur: No - Abdominal Inspection: Normal Distension: No distension Bowel sounds: Normal Tenderness: Nontender Organomegaly: No organomegaly - Back Back: Normal, Nontender - Extremities General upper extremity: Normal inspection, Nontender, Normal color, Normal ROM , Normal temperature General lower extremity: Normal inspection, Normal color, Normal ROM, Normal temperature, Normal weight bearing. No: Damian's sign Knee: Tender, Pain with ROM, Patellar tendon intact, Tender joint line. No: Abrasion, Deformity, Dislocation, Drawer's test instability, Ecchymosis, Instability, Laceration, Laxity with valgus stress, Laxity with varus stress, Popliteal fossa tender, Unable to bear weight - Neurological Neuro grossly intact: Yes Cognition: Normal Orientation: AAOx4 [employer] Mdl Coma Scale Eye Opening: Spontaneous [employer] Base Mdl Coma Scale Verbal: Oriented [employer] Mdl Coma Scale Motor: Obeys Commands Aranza Coma Scale Total: 15 Speech: Normal Motor strength normal: LUE, RUE, LLE, RLE Sensory: Normal - Psychological Associated symptoms: Normal affect, Normal mood - Skin Skin Temperature: Warm Skin Moisture: Dry Skin Color: Normal Course - Re-evaluation Re-evalutation: 12/03/16 15:28 X-ray discussed with patient there is fractures noted on the x-rays. There is mild effusion noted and the patient does have arthritis. Patient did not injure her leg she was doing exercises. Fernandez wrap applied to the knee and patient instructed to follow-up with her primary doctor and orthopedics. Patient was discharged home with instructions for elevation ice and ibuprofen. - Vital Signs Vital signs: Temp Pulse Resp BP Pulse Ox 98.3 F 89 16 112/70 97 12/03/16 13:24 12/03/16 13:24 12/03/16 13:24 12/03/16 13:24 12/03/16 13:24 - Diagnostic Test Radiology reviewed: Image reviewed, Reports reviewed Procedures - Immobilization Left Knee Time completed: 13:20 Immobilizer type: Fernandez wrap Performed by: PCT Post-Proc Neuro Vasc Exam: Normal Alignment checked and good: Yes Discharge - Discharge Clinical Impression: Arthritis of knee, Effusion, left knee Condition: Stable Disposition: HOME, SELF-CARE Additional Instructions: Arthritis Your symptoms are due to arthritis. Arthritis is an inflammation of the joints. There are many types -- osteoarthritis (due to "wear and tear"), auto- immmune arthritis (such as rheumatoid, lupus, Ace's, and others), and crystal -induced arthritis (such as gout and pseudogout). The physician's examination, combined with laboratory tests, will determine the cause of your arthritis. All types of arthritis are treated with antiinflammatory medications. Other medication may be required for special types of arthritis, or if your problem does not respond to the antiinflammatory medicine. Local warmth may be helpful. Move the involved joints through the full range of motion daily. Mild exercise is usually still possible for most persons with arthritis (ask your physician). Swimming provides good exercise without damaging the joints. Contact the physician if you are worsening in any way. Fernandez Wrap A compression dressing (fernandez wrap) has been placed. This helps hold the area still. It limits swelling and internal bleeding. The wrap should be comfortably snug -- not tight. You should feel a sense of pressure, but not severe pain under the wrap. Unless the physician tells you otherwise, you can adjust the wrap for comfort. If the wrap causes symptoms suggesting it's too tight -- uncomfortable pressure, swelling or discoloration beyond the wrap, numbness, or severe pain - - you must loosen the wrap. If these symptoms don't resolve promptly, return for re-evaluation. Knee Effusion You have a fluid collection in the knee joint, called an effusion. This fluid build up can occur from irritation of the synovial membrane lining the knee joint or from a more serious injury to the knee. Irritation of the membrane can occur from excessive, repetitive knee activitiy, like kneeling or squatting for extended periods or even just excessive walking, jogging, or skiing. Effusions also can occur with infections in the joint and with some arthritic conditions, especially gout. Fluid collections in these situations are usually yellow in color and either clear or cloudy in appearance. Significant injury to the knee can result in fluid collection which is partly or entirely blood and this condition is known as a hemarthrosis of the knee joint. If the fluid collection is not too large and/or painful, it can be managed conservatively with rest, ice packs, and anti-inflammatory and pain medications as needed. If the fluid collection is large and very painful, the knee joint can be drained (aspirated) by a relatively minor procedure of inserting a needle in the joint and removing some or all of the fluid present. If your knee was aspirated, you should rest it as much as possible for a few days, keep a pressure dressing around the knee and apply ice packs for at least 48 - 72 hours. If there are signs of developing infection such as heat and redness of the knee, fever, etc. you should return immediately for a recheck. ICE & ELEVATION: Apply ice packs frequently against the painful area. Many different schedules are recommended, such as "20 minutes on, 20 minutes off" or "one hour ice, two hours rest." If you need to work, you may need to go longer between ice treatments. You should plan to have the area ice packed AT LEAST one- fourth of the time. The ice should be applied over the wrap, tape, or splint, or over a layer of cloth -- not directly against the skin. Some ice bags have a built-in cloth and can be put directly on the skin. Your injured part should be elevated as much as possible over the next 48 hours. Try to keep the injury above the level of the heart. Avoid use of the injured area. Elevation and rest will decrease the swelling. USE OF [id number] IBUPROFEN: Ibuprofen (Advil, Nuprin, Medipren, Motrin IB) is a medication for fever and pain control. In addition, it has anti- inflammatory effects which may be beneficial, especially in the treatment of injuries. It's best to take ibuprofen with food. Persons with ulcer disease or allergy to aspirin should notify their physician of this before taking ibuprofen. Ibuprofen can be given every four to six hours, for a total of four doses daily. Age Pain or fever dose Antiinflammatory dose 6-8 yr 200 mg (1 tab) 200 mg (1 tab) 9-11 yr 200 mg (1 tab) 200-400 mg (1-2 tab) 11-14 yr 200-400 mg (1-2 tab) 400 mg (2 tab) 15-adult 400 mg (2 tab) 600 mg (3 tab) FOLLOW-UP CARE: If you have been referred to a physician for follow-up care, call the physician s office for an appointment as you were instructed or within the next two days. If you experience worsening or a significant change in your symptoms, notify the physician immediately or return to the Emergency Department at any time for re-evaluation. Prescriptions: Ibuprofen 800 mg PO TIDP PRN #14 tablet PRN Reason: Forms: Elevated Blood Pressure Referrals: JOHN LUONG MD [ACTIVE STAFF] - Follow up as needed
--- NOTE | 2016-12-03 12:54 | RADIOLOGY REPORT (SQ) ---
EXAM DESCRIPTION: KNEE LEFT 4 VIEW COMPLETED DATE/TIME: 12/03/2016 12:20 pm REASON FOR STUDY: pain and swelling COMPARISON: None. NUMBER OF VIEWS: Four views. TECHNIQUE: AP, lateral, and both oblique radiographic images acquired of the left knee. LIMITATIONS: None. FINDINGS: MINERALIZATION: Normal. BONES: No acute fracture or dislocation. No worrisome bone lesions. JOINT: Small effusion. SOFT TISSUES: No soft tissue swelling. No radio-opaque foreign body. OTHER: No other significant finding. IMPRESSION: Osteoarthritis. Joint effusion. TECHNICAL DOCUMENTATION: JOB ID: [id number] [employer]- All Rights Reserved
[2016-12-03 13:27] VITALS: BP 112/70
== END 2016-12-03 13:27 | disposition home or self-care (01) ==
LOC: ER 11:35
DX: M13.862 Other specified arthritis, left knee (principal); M25.462 Effusion, left knee; M25.562 Pain in left knee; M79.89 Other specified soft tissue disorders; Z79.899 Other long term (current) drug therapy
CPT/HCPCS: 99283

== ENCOUNTER 2017-06-29 10:54 | Emergency (ER) | payer OTHER ==
[2017-06-29 11:01] VITALS: BP 134/81
[2017-06-29] MEDS ORDERED: DEXAMETHASONE 4 MG TABLET PO ONE (11:34)
[2017-06-29] MEDS ORDERED: CEPHALEXIN 500 MG CAPSULE PO ONE (11:34)
--- NOTE | 2017-06-29 11:38 | ER Document Report ---
HPI - HPI Patient complains to provider of: Left hand swelling Onset: Yesterday Onset/Duration: Gradual Quality of pain: Achy Pain Level: 2 Context: Patient presents complaining of left hand pain swelling and burning with pruritus that started yesterday. Patient denies any injury. Patient denies any fever. Patient does state that she was attempting to kill ants with hot water yesterday but does not recall a bite to her hand. Associated Symptoms: Other - Left hand pain and swelling. denies: Fever, Headache Exacerbated by: Movement Relieved by: Denies Similar symptoms previously: No Recently seen / treated by doctor: No - ROS ROS below otherwise negative: Yes Systems Reviewed and Negative: Yes All other systems reviewed and negative - CONSTITUTIONAL Constitutional: DENIES: Fever, Chills - GASTROINTESTINAL Gastrointestinal: DENIES: Nausea - REPRODUCTIVE Reproductive: DENIES: : - MUSCULOSKELETAL Musculoskeletal: REPORTS: Extremity pain, Swelling - DERM Skin Color: Erythema Past Medical History - General Information source: Patient - Social History Smoking Status: Never Smoker Frequency of alcohol use: None Drug Abuse: None Occupation: None Lives with: Family Family History: Arthritis, CAD, CVA, DM, Hyperlipidemia, Hypertension, Malignancy. denies: COPD, Thyroid Disfunction - Past Medical History Cardiac Medical History: Denies: Hx Heart Attack, Hx Hypertension Pulmonary Medical History: Denies: Hx Asthma, Hx Bronchitis, Hx COPD, Hx Pneumonia Neurological Medical History: Reports: Hx Seizures - LAST ONE 12/26/15;"They can 't find out what's causing them" Renal/ Medical History: Reports: Hx Ovarian Cysts. Denies: Hx Peritoneal Dialysis Musculoskeltal Medical History: Reports Hx Arthritis, Reports Hx Musculoskeletal Deformity, Reports Hx Musculoskeletal Trauma Psychiatric Medical History: Reports: Hx Anxiety - Takes Effexor, Hx Attention Deficit Hyperactivity Disorder, Hx Depression Past Surgical History: Reports: Hx Abdominal Surgery - gastric bypass, Hx Adenoidectomy, Hx Appendectomy, Hx Cholecystectomy, Hx Gastric Bypass Surgery - 2002, Hx Hysterectomy, Hx Orthopedic Surgery - L meniscus repair, Hx Tonsillectomy - Immunizations Immunizations up to date: Yes Hx Diphtheria, Pertussis, Tetanus Vaccination: Yes - 2014 Vertical Provider Document - CONSTITUTIONAL Agree With Documented VS: Yes Exam Limitations: No Limitations General Appearance: WD/WN, No Apparent Distress - INFECTION CONTROL TRAVEL OUTSIDE OF THE [place] IN LAST 30 DAYS: No - HEENT HEENT: Atraumatic, Normocephalic - NECK Neck: Normal Inspection - RESPIRATORY Respiratory: No Respiratory Distress - CARDIOVASCULAR Pulses: Normal: Radial - BACK Back: Normal Inspection - MUSCULOSKELETAL/EXTREMETIES Musculoskeletal/Extremeties: MAEW, Tender - Left hand tenderness with 2+ edema, Edema - NEURO Level of Consciousness: Awake, Alert, Appropriate Motor/Sensory: No Motor Deficit - DERM Integumentary: Warm, Dry. negative: Abscess Notes: Patient with papular weeping lesion to dorsal aspect of left hand over fifth metacarpal with surrounding erythema Course - Re-evaluation Re-evalutation: 06/29/17 11:35 Patient with left hand swelling consistent with likely insect bite and inflammatory response. Patient scratching at her hand in the room. No concern for tenosynovitis. No fever. Will cover with antibiotics in case of early developing cellulitis. - Vital Signs Vital signs: Temp Pulse Resp BP Pulse Ox 98.6 F 105 H 16 134/81 H 98 06/29/17 10:59 06/29/17 10:59 06/29/17 10:59 06/29/17 10:59 06/29/17 10:59 Discharge - Discharge Clinical Impression: Insect bite Qualifiers: Encounter type: initial encounter Qualified Code(s): W57.XXXA - Bitten or stung by nonvenomous insect and other nonvenomous arthropods, initial encounter Hand swelling Qualifiers: Laterality: left Qualified Code(s): M79.89 - Other specified soft tissue disorders Condition: Stable Disposition: HOME, SELF-CARE Instructions: Acetaminophen, Use of Diphenhydramine, Topical Steroid Cream or Ointment ([facility]), Steroid Medication, Swollen Insect Bite or Sting ([facility]) Additional Instructions: Return immediately for any new or worsening symptoms Followup with your primary care provider, call tomorrow to make a followup appointment Prescriptions: Cephalexin Monohydrate [Keflex 500 mg Capsule] 500 mg PO Q6H 5 Days capsule Triamcinolone Acetonide [Aristocort 0.1% Cream] 1 applic TP TID #60 gm Referrals: [facility] [Provider Group] - Follow up as needed GIULIA METCALF DO [ACTIVE STAFF] - Follow up as needed
== END 2017-06-29 11:48 | disposition home or self-care (01) ==
LOC: ER 10:54
DX: T14.8XXA Other injury of unspecified body region, initial encounter (principal); W57.XXXA Bitten or stung by nonvenomous insect and other nonvenomous arthropods, initial encounter; M79.642 Pain in left hand
CPT/HCPCS: 99283